=== PATIENT | female | born 1995 | race Caucasian/White ===

== ENCOUNTER 2019-02-03 11:02 | Emergency (ER) | payer OTHER ==
[~2019-02-03] VITALS: Ht 154.9 cm; Wt 81.7 kg
[2019-02-03] MEDS ORDERED: NORCO 5-325 TA1 EAC1 PO (12:52)
[2019-02-03 13:12] VITALS: BP 143/86
== END 2019-02-03 13:12 | disposition home or self-care (01) ==
LOC: M.ERS 11:02
DX: S83.8X2A Sprain of other specified parts of left knee, initial encounter (principal); W01.0XXA Fall on same level from slipping, tripping and stumbling without subsequent striking against object, initial encounter; Y93.89 Activity, other specified; Y92.238 Other place in hospital as the place of occurrence of the external cause; Y99.0 Civilian activity done for income or pay

== ENCOUNTER → 2020-01-08 | Outpatient (CLI) | payer OTHER ==
[~2020-01-08] MED LIST: NORCO 5-325 TA1 EAC1 PO
[2020-01-09 16:06] LABS: PROLACTIN 8.5 ng/mL (4.8-23.3); TESTOSTERONE 40 ng/dL (8-48)
[2020-01-10 02:06] LABS: GLYCOHEMOGLOBIN (HGB A1C) 5.8 % (4.8-5.6)
== END ==
LOC: M.LAB 16:09
PROVIDERS: ATTEND Nurse Practitioner Women's Health
DX: N92.6 Irregular menstruation, unspecified (principal)